=== PATIENT | female | born 1940 | race Two or more races ===

== ENCOUNTER 2020-06-03 09:06 | Outpatient (CLI) | payer OTHER | END 2020-06-03 09:14 | disposition home or self-care (01) | LOC: TOM 09:06 | PROVIDERS: ATTEND Internal Medicine | DX: K57.92 Diverticulitis of intestine, part unspecified, without perforation or abscess without bleeding (principal) ==

== ENCOUNTER 2021-04-13 07:40 | Outpatient (CLI) | payer OTHER | END 2021-04-13 07:41 | disposition home or self-care (01) | LOC: NUCLEAR 07:40 | PROVIDERS: ATTEND Radiology Radiation Oncology | DX: C79.89 Secondary malignant neoplasm of other specified sites (principal); C77.0 Secondary and unspecified malignant neoplasm of lymph nodes of head, face and neck | CPT/HCPCS: 78815; A9552 ==